=== PATIENT | male | born 1945 | race African-American/Black ===

== ENCOUNTER → 2016-12-06 | Outpatient (CLI) | payer OTHER, BC ==
[~2016-12-06] MED LIST: ASPIR 8181 MG PO; CENTRUM SILVER1 EAC2 PO; CO Q-10100 MG PO; COUMADIN 5 MG TA5 M1 PO; ENOXAPARIN100 MG/11 SUBQ; FISH OIL 1,4001 EACH PO; FLONASE 0.05%50 MCG NASAL; GARLIC1 EACH PO; HYDROCODONE-AP1 EAC6 PO; IBUPROFEN 600600 M1 PO; IPRATROPIUM BRO15 ML NASAL; IPRATROPIUM BRO30 ML NASAL; MULTIVITAMIN PO; NASACORT10.8 ML NASAL; OMEPRAZOLE20 M1 PO; OMEPRAZOLE40 MG PO; PATANASE30.5 GM NASAL; PEPCID20 MG PO; PERCOCET 10-321 EACH PO; RED YEAST RICE600 MG PO; TRAMADOL 50 MG50 MG PO; ULTRA-LIGHT RO1 EACH MC; VITAMIN D32000 UNI1 PO; VITAMIN D35000 UNIT PO; VITAMINC500 PO; XARELTO10 MG PO; ZINC30 MG PO
[2016-12-06 09:27] LABS: CREATININE 0.9 mg/dL (0.7-1.3)
== END ==
LOC: CAT 07:23
DX: Z09 Encounter for follow-up examination after completed treatment for conditions other than malignant neoplasm (principal); I26.99 Other pulmonary embolism without acute cor pulmonale

== ENCOUNTER 2017-01-24 16:04 | Emergency (ER) | payer BC, OTHER ==
[~2017-01-24] VITALS: Ht 180.3 cm; Wt 95.3 kg
[2017-01-24 19:39] LABS: HEMOGLOBIN 12.8 gm/dL (14.0-18.0); MCH 27.5 pg (26.0-34.0); MCHC 32.7 g/dL (28.0-37.0); RBC 4.64 mil/uL (4.50-6.00); RDW 14.1 % (10.5-14.5); WBC 14.6 thou/uL (4.0-11.0)
[2017-01-24 19:49] LABS: CALCIUM 9.1 mg/dL (8.5-10.1); POTASSIUM 3.7 mmol/L (3.5-5.1)
[2017-01-24 19:53] LABS: ALBUMIN 3.4 g/dL (3.4-5.0); DIRECT BILIRUBIN 0.1 mg/dL (<0.1-0.3); TOTAL BILIRUBIN 0.5 mg/dL (<0.1-1.0); TOTAL PROTEIN 7.9 g/dL (6.4-8.2)
[2017-01-24] MEDS ORDERED: NORCO 5-325 TA1 EACH PO (20:57)
[2017-01-24] MEDS ORDERED: ONDANSETRON HCL4 M2 PO (20:57)
[2017-01-24] MEDS ORDERED: FLAGYL500 MG PO (20:57)
[2017-01-24] MEDS ORDERED: CIPRO500 MG PO (20:57)
[2017-01-24 21:27] LABS: URINE BILIRUBIN 1+ (Negative); URINE BLOOD 1+ (Negative); URINE COLOR YELLOW; URINE GLUCOSE-RANDOM* NEGATIVE (Negative); URINE KETONES 2+ (Negative); URINE LEUKOCYTES-REFLEX NEGATIVE (Negative); URINE PROTEIN (DIPSTICK) TRACE (Negative); URINE UROBILINOGEN 0.2 E.U./dl (0.2-1.0)
[2017-01-24 21:31] LABS: ICTOTEST (BILI CONFIRMATORY) Negative (Negative)
[2017-01-24 21:40] LABS: CASTS None Seen /LPF (None Seen); SQUAMOUS 0-3 Few /LPF (0-3)
[2017-01-24 21:41] LABS: CRYSTALS None Seen /LPF (None Seen); URINE RBC 0-2 Rare /HPF (0-2); URINE WBC-REFLEX 0-5 Rare /HPF (0-5)
[2017-01-25] MEDS ORDERED: HYDROCHLOROTH12.5 M1 PO (16:36)
[2017-01-25] MEDS ORDERED: XARELTO10 MG PO (16:36)
== END 2017-01-24 21:42 | disposition home or self-care (01) ==
LOC: ER 16:04
PROVIDERS: Emergency Medicine; Physician Assistant
DX: K57.92 Diverticulitis of intestine, part unspecified, without perforation or abscess without bleeding (principal); K59.00 Constipation, unspecified; K21.9 Gastro-esophageal reflux disease without esophagitis; Z86.718 Personal history of other venous thrombosis and embolism; Z87.11 Personal history of peptic ulcer disease; Z96.651 Presence of right artificial knee joint; Z87.891 Personal history of nicotine dependence

== ENCOUNTER 2017-01-25 12:02 | Inpatient (IN) | payer BC, OTHER ==
[~2017-01-25] VITALS: Ht 180.3 cm; Wt 99.8 kg
[2017-01-25 12:02] VITALS: BP 119/76
[~2017-01-25 12:02] MED LIST changes: +CIPRO500 MG PO; +FLAGYL500 MG PO; +NORCO 5-325 TA1 EACH PO; +ONDANSETRON HCL4 M2 PO
[2017-01-25 12:34] LABS: HEMATOCRIT 39.5 % (42.0-52.0); HEMOGLOBIN 13.4 gm/dL (14.0-18.0); MCH 27.8 pg (26.0-34.0); MCHC 33.9 g/dL (28.0-37.0); MCV 82.1 fL (80.0-100.0); PLATELET COUNT 253 thou/uL (150-400); RBC 4.81 mil/uL (4.50-6.00); WBC 16.7 thou/uL (4.0-11.0)
[2017-01-25 12:42] LABS: ANION GAP 10 mmol/L (7-16); BUN 18 mg/dL (7-18); CALCIUM 9.1 mg/dL (8.5-10.1); CHLORIDE 104 mmol/L (98-107); CO2 25 mmol/L (21-32); CREATININE 0.9 mg/dL (0.7-1.3); GLUCOSE 185 mg/dL (74-106); POTASSIUM 3.3 mmol/L (3.5-5.1); SODIUM 139 mmol/L (136-145)
[2017-01-25 12:43] LABS: MANUAL DIFF YES
[2017-01-25 12:49] LABS: ALBUMIN 3.3 g/dL (3.4-5.0); ALKALINE PHOSPHATASE 66 U/L (46-116); DIRECT BILIRUBIN 0.1 mg/dL (<0.1-0.3); SGOT 16 U/L (15-37); SGPT 17 U/L (30-65); TOTAL BILIRUBIN 0.5 mg/dL (<0.1-1.0); TROPONIN-I < 0.04 ng/mL (<0.04-0.07)
[2017-01-25 13:23] LABS: ABSOLUTE NEUTROPHILS 15.2 thou/uL (1.4-8.2); TOTAL CELL COUNT 100
[2017-01-25 13:24] LABS: ANISOCYTOSIS SLIGHT
[2017-01-25] MEDS ORDERED: XARELTO10 MG PO (16:36)
[2017-01-25] MEDS ORDERED: HYDROCHLOROTH12.5 M1 PO (16:36)
[2017-01-25 17:15] VITALS: BP 158/78
[2017-01-25 21:20] VITALS: BP 158/76
[2017-01-26 02:17] VITALS: BP 158/76
[2017-01-26 04:18] VITALS: BP 133/67
[2017-01-26 04:28] LABS: ABSOLUTE NEUTROPHILS 10.2 thou/uL (1.4-8.2); BASOPHILS 0.2 % (0.0-2.0); EOSINOPHILS 0.5 % (0.0-3.0); HEMATOCRIT 34.9 % (42.0-52.0); HEMOGLOBIN 11.8 gm/dL (14.0-18.0); LYMPHOCYTES 11.9 % (24.0-44.0); MCH 27.7 pg (26.0-34.0); MCHC 33.8 g/dL (28.0-37.0); MCV 82.1 fL (80.0-100.0); PLATELET COUNT 222 thou/uL (150-400); POLYS 79.4 % (36.0-66.0); RBC 4.26 mil/uL (4.50-6.00); RDW 14.3 % (10.5-14.5); WBC 12.8 thou/uL (4.0-11.0)
[2017-01-26 04:37] LABS: MANUAL DIFF NO
[2017-01-26 04:49] LABS: ALBUMIN 2.7 g/dL (3.4-5.0); CALCIUM 8.5 mg/dL (8.5-10.1); CREATININE 0.8 mg/dL (0.7-1.3); POTASSIUM 3.5 mmol/L (3.5-5.1); TOTAL BILIRUBIN 0.3 mg/dL (<0.1-1.0)
[2017-01-26 08:00] VITALS: BP 118/64
[2017-01-26] MEDS ORDERED: FLONASE 0.05%50 MCG NASAL (13:39)
[2017-01-26 16:00] VITALS: BP 159/83
[2017-01-26 21:11] VITALS: BP 175/87
[2017-01-27] VITALS (7 sets, daily range): BP systolic 117–175; BP diastolic 60–96
[2017-01-28 04:35] VITALS: BP 138/78
[2017-01-28 08:00] VITALS: BP 145/82
[2017-01-28 16:00] VITALS: BP 140/73
[2017-01-28 21:15] VITALS: BP 145/80
[2017-01-29 03:45] VITALS: BP 161/88
[2017-01-29] MEDS ORDERED: CIPRO500 MG PO (07:26)
[2017-01-29] MEDS ORDERED: FLAGYL500 MG PO (07:26)
[2017-01-29 08:41] VITALS: BP 157/80
[2017-01-29 10:55] VITALS: BP 157/80
== END 2017-01-29 12:30 | disposition home or self-care (01) | DRG 392 ==
LOC: ER 12:02 → 4S 15:41 → EROBS 15:41 → 4S 16:24
PROVIDERS: Emergency Medicine; Family Medicine
DX: K57.12 Diverticulitis of small intestine without perforation or abscess without bleeding (principal); I10 Essential (primary) hypertension; K21.9 Gastro-esophageal reflux disease without esophagitis; G47.30 Sleep apnea, unspecified; Z96.651 Presence of right artificial knee joint; Z79.899 Other long term (current) drug therapy; Z86.718 Personal history of other venous thrombosis and embolism; Z79.01 Long term (current) use of anticoagulants; Z86.711 Personal history of pulmonary embolism; Z87.891 Personal history of nicotine dependence
CPT/HCPCS: 10195

== ENCOUNTER → 2021-07-21 | Outpatient (CLI) | payer OTHER ==
[~2021-07-21] MED LIST changes: +ESCITALOPRAM OX10 MG PO; +FISH OIL 1,001000 M2 PO; +FLOMAX0.4 MG PO; +HYDROCHLOROTH12.5 M1 PO; +PRADAXA110 MG PO; +TERAZOSIN HCL5 MG PO
== END ==
LOC: SJCVC 13:11
PROVIDERS: ATTEND Internal Medicine
DX: I48.91 Unspecified atrial fibrillation (principal); I10 Essential (primary) hypertension; E78.5 Hyperlipidemia, unspecified; K21.9 Gastro-esophageal reflux disease without esophagitis; E78.00 Pure hypercholesterolemia, unspecified; F32.9 Major depressive disorder, single episode, unspecified; D68.59 Other primary thrombophilia; Z79.899 Other long term (current) drug therapy; Z87.891 Personal history of nicotine dependence; Z72.89 Other problems related to lifestyle

== ENCOUNTER → 2021-08-17 | Outpatient (CLI) | payer OTHER ==
[~2021-08-17] MED LIST changes: +CARDIZEM120 MG PO; +COZAAR 25 MG TA25 M2 PO; +ELIQUIS5 MG PO; +LIPITOR20 MG PO; +OMEPRAZOLE20 M2 PO; +XYZAL5 MG PO
== END ==
LOC: SJCVCIMAG 08-01 09:36
PROVIDERS: ATTEND Internal Medicine
DX: R07.9 Chest pain, unspecified (principal); I48.91 Unspecified atrial fibrillation; I10 Essential (primary) hypertension; E78.5 Hyperlipidemia, unspecified; K21.9 Gastro-esophageal reflux disease without esophagitis; Z79.01 Long term (current) use of anticoagulants; Z79.899 Other long term (current) drug therapy; Z98.890 Other specified postprocedural states; Z87.891 Personal history of nicotine dependence; Z72.89 Other problems related to lifestyle

== ENCOUNTER → 2021-08-30 | Outpatient (CLI) | payer OTHER ==
[~2021-08-30] VITALS: Ht 180.3 cm; Wt 105.2 kg
[2021-08-30 10:37] VITALS: BP 137/75
[2021-08-30 11:32] LABS: HEMATOCRIT 34.8 % (42.0-52.0); HEMOGLOBIN 11.5 gm/dL (14.0-18.0); MCH 28.1 pg (26.0-34.0); MCV 85.1 fL (80.0-100.0); RBC 4.09 mil/uL (4.50-6.00); RDW 17.1 % (10.5-14.5); WBC 4.3 thou/uL (4.0-11.0)
--- NOTE | 2021-08-30 11:32 | EKG ---
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
[2021-08-30 11:48] LABS: CALCIUM 9.3 mg/dL (8.5-10.1); CREATININE 0.8 mg/dL (0.7-1.3)
== END | disposition home or self-care (01) ==
LOC: CATH 08-23 08:06
PROVIDERS: ATTEND Internal Medicine
DX: R07.9 Chest pain, unspecified (principal); I10 Essential (primary) hypertension; E78.5 Hyperlipidemia, unspecified; I48.91 Unspecified atrial fibrillation; M19.90 Unspecified osteoarthritis, unspecified site; F32.9 Major depressive disorder, single episode, unspecified; K21.9 Gastro-esophageal reflux disease without esophagitis; Z85.46 Personal history of malignant neoplasm of prostate; F03.90 Unspecified dementia, unspecified severity, without behavioral disturbance, psychotic disturbance, mood disturbance, and anxiety; E78.00 Pure hypercholesterolemia, unspecified; Z98.890 Other specified postprocedural states; Z79.899 Other long term (current) drug therapy; Z86.73 Personal history of transient ischemic attack (TIA), and cerebral infarction without residual deficits; Z87.891 Personal history of nicotine dependence; Z79.01 Long term (current) use of anticoagulants; Z20.822 Contact with and (suspected) exposure to COVID-19